=== PATIENT | female | born 1950 | race Caucasian/White ===

== ENCOUNTER → 2022-03-13 | Outpatient (CLI) | payer MEDICARE | LOC: RAD 11:26 → LAB 11:26 | DX: Z01.818 Encounter for other preprocedural examination (principal); J98.11 Atelectasis; J98.4 Other disorders of lung ==

== ENCOUNTER → 2023-08-12 | Outpatient (CLI) | payer MEDICARE | LOC: RAD 09:20 | DX: M51.36 Other intervertebral disc degeneration, lumbar region (principal); M41.86 Other forms of scoliosis, lumbar region; M81.0 Age-related osteoporosis without current pathological fracture ==

== ENCOUNTER → 2024-03-01 | Outpatient (CLI) | payer MEDICARE | LOC: MAMMO 10:31 | DX: Z12.31 Encounter for screening mammogram for malignant neoplasm of breast (principal) ==